=== PATIENT | male | born 1955 | race Two or more races ===

== ENCOUNTER 2016-08-04 09:42 | Day surgery (SDC) | payer OTHER ==
[~2016-08-04] VITALS: Ht 182.9 cm; Wt 79.4 kg
[~2016-08-04 09:42] MED LIST: 0.9% Sodium Chloride 1,000 ML IV SCH; ASCO100089 PO; ASHWAGANDHA PO; B COMPLEX PO; CETI10CA PO; CHOL500051 PO; CREST10T PO; FLUT1BLS IH; LACT1CAP65 PO; MULT-1018 PO; Sodium Chloride LOK Flush 10 mL Syringe IV PRN; TAMS0.4C98 PO; UBID300C PO; fentaNYL-PF 50 mCg/mL 2 mL Inj IVPUSH PRN
[2016-08-04 09:53] VITALS: BP 124/85; PULSE 78; RESP 16; O2SAT 100
[2016-08-04 10:25] VITALS: BP 113/73; PULSE 72; RESP 16; O2SAT 98
[2016-08-04 10:38] VITALS: BP 105/68; PULSE 87; RESP 12; O2SAT 99
--- NOTE | 2016-08-04 10:40 | ENDO ---
[address] [address] ENDOSCOPY PROCEDURE PATIENT: IVON CONLEY : 1955 MR#: [id number] ADMIT: 08/04/2016 JOB ID: [id number] DATE OF SERVICE: 08/04/2016 COLONOSCOPY: INDICATIONS: The patient with a personal history of colon cancer involving the sigmoid colon for which she underwent partial left-sided colectomy approximately a year ago and now presents today for surveillance. ASA CLASSIFICATION: His ASA classification is II. MALLAMPATI SCORE: 2. MEDICATIONS: 1. Versed 3 mg. 2. Fentanyl 75 mcg. INSTRUMENT USED: [id number]-H180AL. PREPARATION QUALITY: Good. PROCEDURE DETAILS: After informed consent was obtained, the patient was brought to the GI suite, where he was placed on oxygen via nasal cannula and monitored with continuous pulse oximeter, telemetry and blood pressure monitoring. A time-out was performed. Then, he was placed in the left lateral decubitus position and medications were administered for sedation. A digital rectal exam was performed which was unremarkable. The colonoscope was then inserted into the rectum and advanced under direct visualization to the cecum, which was identified by the presence of the ileocecal valve and appendiceal orifice. Once the cecum was reached, the colonoscope was then withdrawn back into the rectum, as the mucosa and lumen were examined. In the rectum, retroflexion was performed. Following retroflexion, remaining air in the rectum was suctioned, and procedure was completed. FINDINGS: 1. At 20 cm, there was evidence of a colo-colo anastomosis consistent with patient's history of colon cancer surgery. 2. Scattered diverticula were seen throughout the left side of the colon. IMPRESSION: 1. Raleigh-colo anastomosis at 20 cm. 2. Left-sided diverticulosis. RECOMMENDATIONS: Repeat colonoscopy in one year. COMPLICATIONS: None. ESTIMATED BLOOD LOSS: Zero.
[2016-08-04 10:44] VITALS: BP 113/79; PULSE 78; RESP 14; O2SAT 98
[2016-08-12] MEDS ORDERED: TURM500C7 PO (08:44)
== END 2016-08-04 23:59 | disposition home or self-care (01) ==
LOC: END 09:42
PROVIDERS: ATTEND Internal Medicine Gastroenterology
DX: K57.30 Diverticulosis of large intestine without perforation or abscess without bleeding (principal); K63.89 Other specified diseases of intestine; Z85.038 Personal history of other malignant neoplasm of large intestine; Z79.899 Other long term (current) drug therapy; Z87.891 Personal history of nicotine dependence